=== PATIENT | female | born 1950 | race African-American/Black ===

== ENCOUNTER 2017-05-12 13:30 | Emergency (ER) | payer OTHER ==
[2017-05-12] MEDS ORDERED: ISOVUE-370 76%-LOCM 1 ML ONE (14:12)
[2017-05-12 14:41] LABS: #Basophils 0.1 thou/uL (0.0-0.2); #Eosinphils 0.1 thou/uL (0.0-0.7); #Lymphocytes 2.4 thou/uL (1.20-3.40); #Monocytes 0.4 thou/uL (0.11-0.59); #Neutrophils 4.4 thou/uL (1.40-6.50); %Basophils 0.9 % (0.0-1.0); %Eosinophils 1.2 % (0.0-10.0); %Lymphocytes 32.8 % (21.0-51.0); %Monocytes 4.9 % (0.0-10.0); Hematocrit 36.9 % (36.0-47.0); Mean Platelet Volume 8.7 fL (7.4-10.4); Red Blood Cell (RBC) Count 3.75 mill/uL (4.20-5.40); White Blood Cell (WBC) Count 7.3 thou/uL (4.8-10.8)
[2017-05-12 15:00] LABS: ALT (SGPT) 35 U/L (8-55); AST (SGOT) 22 U/L (5-34); Alkaline Phosphatase 103 U/L (40-150); Anion Gap 17 mmol/L (10-20); BUN (Urea Nitrogen) 16 mg/dL (9.8-20.1); Bilirubin, Total 0.2 mg/dL (0.2-1.2); Calc. Creatinine Clearance 0 mL/min (70-130); Calcium 9.6 mg/dL (7.8-10.44); Carbon Dioxide 27 mmol/L (23-31); Chloride 100 mmol/L (98-107); Estimated GFR-MDRD 74; Globulin 3.8 g/dL (2.4-3.5); Protein, Total 7.8 g/dL (6.0-8.3)
--- NOTE | 2017-05-12 17:15 | CT ---
CT OF THE NECK WITH CONTRAST 05/12/17 COMPARISON: None. HISTORY: Left facial pain and swelling. Sore throat. Submandibular swelling. TECHNIQUE: Multiple contiguous axial images were obtained in a CT of the face/neck with contrast. Sagittal and coronal reformats were performed. FINDINGS: There may be mild stranding in the left parotid gland compared to the right without other focal abno rmality or significant enlargement of the left parotid gland. The submandibular glands are symmetric . The thyroid is unremarkable. No significant soft tissue swelling in the face is seen. No cervical adenopathy is seen. Vascular calcifications are seen in the carotid arteries. 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 No mucosal abnormality is seen in the nasopharynx, oropharynx, hypopharynx, or subglottic regions. T he visualized lung apices are unremarkable. Degenerative changes are seen in the spine. The visualiz ed intracranial structures are unremarkable. IMPRESSION: No focal abscess or fluid collection in the neck. POS: [facility]
== END 2017-05-12 17:19 | disposition home or self-care (01) ==
LOC: ERS 13:30
DX: K11.20 Sialoadenitis, unspecified (principal); I25.10 Atherosclerotic heart disease of native coronary artery without angina pectoris; I10 Essential (primary) hypertension; F41.9 Anxiety disorder, unspecified; F25.0 Schizoaffective disorder, bipolar type; E05.90 Thyrotoxicosis, unspecified without thyrotoxic crisis or storm; Z86.73 Personal history of transient ischemic attack (TIA), and cerebral infarction without residual deficits
CPT/HCPCS: 70491; 80053; 85025

== ENCOUNTER 2017-11-08 14:51 | Emergency (ER) | payer MEDICARE, OTHER ==
[2017-11-08 20:03] LABS: #Eosinphils 0.1 thou/uL (0.0-0.7); #Lymphocytes 3.3 thou/uL (1.20-3.40); #Monocytes 0.5 thou/uL (0.11-0.59); %Basophils 0.4 % (0.0-1.0); %Eosinophils 0.6 % (0.0-10.0); %Lymphocytes 37.1 % (21.0-51.0); %Monocytes 5.3 % (0.0-10.0); %Neutrophils 56.5 % (42.0-75.0); Hemoglobin 12.5 g/dL (12.0-16.0); Mean Corpuscular HGB CONC 33.6 g/dL (32.0-36.0); Mean Corpuscular Hemoglobin 32.6 pg (27.0-31.0); Mean Platelet Volume 7.9 fL (7.4-10.4); Platelet Count 242 thou/uL (130-400); RBC Distribution Width 11.4 % (11.5-14.5); Red Blood Cell (RBC) Count 3.84 mill/uL (4.20-5.40); White Blood Cell (WBC) Count 8.9 thou/uL (4.8-10.8)
[2017-11-08 20:30] LABS: ALT (SGPT) 34 U/L (8-55); AST (SGOT) 24 U/L (5-34); Albumin 4.3 g/dL (3.4-4.8); Alkaline Phosphatase 106 U/L (40-150); Anion Gap 14 mmol/L (10-20); BUN (Urea Nitrogen) 18 mg/dL (9.8-20.1); Bilirubin, Total 0.2 mg/dL (0.2-1.2); Calc. Creatinine Clearance 0 mL/min (70-130); Calcium 9.5 mg/dL (7.8-10.44); Carbon Dioxide 30 mmol/L (23-31); Chloride 97 mmol/L (98-107); Estimated GFR-MDRD 67; Globulin 3.8 g/dL (2.4-3.5); Glucose 213 mg/dL (80-115); Potassium 3.8 mmol/L (3.5-5.1); Protein, Total 8.1 g/dL (6.0-8.3); Sodium 137 mmol/L (136-145)
[2017-11-08 20:36] LABS: CKMB 2.8 ng/mL (0-6.6); Troponin I Less than 0.010 ng/mL (< 0.028)
[2017-11-08 20:39] LABS: Bilirubin Negative (Negative); Blood, Urine Negative (Negative); Clarity CLEAR (Clear); Glucose, Urine (Dipstick) Negative (Negative); Leukocyte Negative (Negative); Nitrite Negative (Negative); Protein, Urine (Dipstick) Negative (Neg-Trace); Specific Gravity, Urine 1.018 (1.002-1.036); Urobilinogen 0.2 mg/dL (0.2-1.0)
--- NOTE | 2017-11-08 21:38 | CT ---
CT BRAIN WITHOUT CONTRAST: Comparison: 08-18-16 History: Low blood pressure. Dizziness. Technique: Multiple contiguous axial images were obtained in a CT of the brain without contrast. FINDINGS: The brain is normal in morphology and attenuation without focal lesions or confluent areas of infarct ion. There is no evidence of hydrocephalus, intracranial hemorrhage or extraaxial fluid collection. The calvarium and overlying soft tissues are unremarkable. The visualized paranasal sinuses and masto id air cells are well aerated. IMPRESSION: No evidence of acute intracranial abnormality. POS: [facility]
--- NOTE | 2017-12-09 15:05 | EKG ---
Test Reason : Blood Pressure : / mmHG Vent. Rate : 063 BPM Atrial Rate : 063 BPM P-R Int : 164 ms QRS Dur : 100 ms QT Int : 444 ms P-R-T Axes : 044 019 084 degrees QTc Int : 454 ms Normal sinus rhythm Nonspecific T wave abnormality Abnormal ECG Confirmed by WILBERTO BARROW ([id number]), copy editor JASSI MULLIGAN ([id number]) on 12/09/2017 3:04:15 PM Referred By: Confirmed By:WILBERTO BARROW
== END 2017-11-08 21:15 | disposition home or self-care (01) ==
LOC: ERS 14:51
DX: I95.9 Hypotension, unspecified (principal); E05.90 Thyrotoxicosis, unspecified without thyrotoxic crisis or storm; I25.10 Atherosclerotic heart disease of native coronary artery without angina pectoris; E11.9 Type 2 diabetes mellitus without complications; I10 Essential (primary) hypertension; F41.9 Anxiety disorder, unspecified; F31.9 Bipolar disorder, unspecified; F20.9 Schizophrenia, unspecified; Z86.73 Personal history of transient ischemic attack (TIA), and cerebral infarction without residual deficits; Z79.899 Other long term (current) drug therapy; Z79.84 Long term (current) use of oral hypoglycemic drugs; Z79.82 Long term (current) use of aspirin
CPT/HCPCS: 36415; 70450; 80053; 81003; 82553; 83880; 84484; 85025; 87086; 93005

== ENCOUNTER 2018-05-06 10:35 | Outpatient (CLI) | payer MEDICARE | END 2018-05-06 10:36 | disposition home or self-care (01) | LOC: BICMAMMO 10:35 | PROVIDERS: ATTEND Nurse Practitioner Family | DX: Z12.31 Encounter for screening mammogram for malignant neoplasm of breast (principal) | CPT/HCPCS: 77063; 77067 ==

== ENCOUNTER 2019-03-04 11:31 | Emergency (ER) | payer MEDICARE, MEDICAID | END 2019-03-04 12:25 | disposition home or self-care (01) | LOC: ERS 11:31 | DX: G51.0 Bell's palsy (principal); I25.10 Atherosclerotic heart disease of native coronary artery without angina pectoris; I10 Essential (primary) hypertension; E05.90 Thyrotoxicosis, unspecified without thyrotoxic crisis or storm; Z86.73 Personal history of transient ischemic attack (TIA), and cerebral infarction without residual deficits; Z79.82 Long term (current) use of aspirin; Z79.899 Other long term (current) drug therapy; Z79.84 Long term (current) use of oral hypoglycemic drugs | CPT/HCPCS: 99283 ==

== ENCOUNTER 2019-07-27 01:49 | Emergency (ER) | payer MEDICARE, OTHER ==
[2019-07-27] MEDS ORDERED: Cyclobenzaprine 10 MG TAB ONE (02:24)
== END 2019-07-27 02:30 | disposition home or self-care (01) ==
LOC: ERS 01:49
DX: M62.838 Other muscle spasm (principal); I10 Essential (primary) hypertension; E05.90 Thyrotoxicosis, unspecified without thyrotoxic crisis or storm; I25.10 Atherosclerotic heart disease of native coronary artery without angina pectoris; E11.9 Type 2 diabetes mellitus without complications; F41.9 Anxiety disorder, unspecified; F31.9 Bipolar disorder, unspecified; F20.9 Schizophrenia, unspecified; Z79.899 Other long term (current) drug therapy; Z79.82 Long term (current) use of aspirin; Z86.73 Personal history of transient ischemic attack (TIA), and cerebral infarction without residual deficits; Z79.84 Long term (current) use of oral hypoglycemic drugs
CPT/HCPCS: 99283

== ENCOUNTER 2020-06-06 11:33 | Outpatient (CLI) | payer MEDICARE, OTHER ==
--- NOTE | 2020-06-06 12:31 | MMO ---
Bilateral MAMMO Bilat Screen [facility]. CLINICAL HISTORY: Patient is 69 years old and is seen for screening. The patient has no family history of breast cancer. The patient has no personal history of cancer. VIEWS: The views performed were: bilateral craniocaudal with tomosynthesis and bilateral mediolateral oblique with tomosynthesis. FILMS COMPARED: The present examination has been compared to prior imaging studies performed at [facility] on 03/21/2015, 03/23/2016, 04/16/2017 and 05/06/2018. This study has been interpreted with the assistance of computer-aided detection. MAMMOGRAM FINDINGS: There are scattered fibroglandular densities. There are stable benign appearing calcifications seen in both breasts. There are also vascular calcifications. There are no suspicious masses, suspicious calcifications, or new areas of architectural distortion. IMPRESSION: THERE IS NO MAMMOGRAPHIC EVIDENCE OF MALIGNANCY. A ROUTINE FOLLOW-UP MAMMOGRAM IN 1 YEAR IS RECOMMENDED. THE RESULTS OF THIS EXAM WERE SENT TO THE PATIENT. ACR BI-RADS Category 2 - Benign finding MAMMOGRAPHY NOTE: 1. A negative mammogram report should not delay a biopsy if a dominant of clinically suspicious mass is present. 2. Approximately 10% to 15% of breast cancers are not detected by mammography. 3. Adenosis and dense breasts may obscure an underlying neoplasm. Reported by: JAYJAY BARRERA MD Electonically Signed: [id number]
== END 2020-06-06 11:34 | disposition home or self-care (01) ==
LOC: BICMAMMO 11:33
PROVIDERS: ATTEND Nurse Practitioner Family
DX: Z12.31 Encounter for screening mammogram for malignant neoplasm of breast (principal)
CPT/HCPCS: 77063; 77067

== ENCOUNTER 2020-12-30 17:23 | Emergency (ER) | payer MEDICARE, MEDICAID ==
[2020-12-30 18:14] LABS: #Basophils 0.1 thou/uL (0.0-0.2); #Eosinphils 0.1 thou/uL (0.0-0.7); #Lymphocytes 3.2 thou/uL (1.20-3.40); #Monocytes 0.7 thou/uL (0.11-0.59); #Neutrophils 4.3 thou/uL (1.40-6.50); %Basophils 0.7 % (0.0-1.0); %Eosinophils 1.1 % (0.0-10.0); %Lymphocytes 38.2 % (21.0-51.0); %Monocytes 8.3 % (0.0-10.0); %Neutrophils 51.7 % (42.0-75.0); Hemoglobin 11.5 g/dL (12.0-16.0); Mean Corpuscular Hemoglobin 33.5 pg (27.0-31.0); Mean Corpuscular Volume 98.5 fL (78.0-98.0); Mean Platelet Volume 8.2 fL (7.4-10.4); Platelet Count 214 thou/uL (130-400); RBC Distribution Width 11.6 % (11.5-14.5); Red Blood Cell (RBC) Count 3.43 mill/uL (4.20-5.40); White Blood Cell (WBC) Count 8.4 thou/uL (4.8-10.8)
[2020-12-30] MEDS ORDERED: Aspirin Chewable 81 MG TAB ONE (18:21)
[2020-12-30 18:46] LABS: AST (SGOT) 17 U/L (5-34); Anion Gap 14 mmol/L (10-20); Bilirubin, Total 0.2 mg/dL (0.2-1.2); Carbon Dioxide 27 mmol/L (23-31); Chloride 100 mmol/L (98-107); Potassium 4.3 mmol/L (3.5-5.1); Sodium 137 mmol/L (136-145)
[2020-12-30 19:25] LABS: ALT (SGPT) 22 U/L (8-55); Albumin 4.1 g/dL (3.4-4.8); Alkaline Phosphatase 93 U/L (40-110); BUN (Urea Nitrogen) 15 mg/dL (9.8-20.1); Calc. Creatinine Clearance 0 mL/min (70-130); Globulin 2.8 g/dL (2.4-3.5); Glucose 76 mg/dL (80-115); Protein, Total 6.9 g/dL (5.8-8.1)
== END 2020-12-30 19:57 | disposition home or self-care (01) ==
LOC: ERS 17:23
DX: L03.313 Cellulitis of chest wall (principal); R60.0 Localized edema; R06.02 Shortness of breath; Z79.899 Other long term (current) drug therapy; Z79.84 Long term (current) use of oral hypoglycemic drugs; Z79.82 Long term (current) use of aspirin; E66.9 Obesity, unspecified; I10 Essential (primary) hypertension; I25.10 Atherosclerotic heart disease of native coronary artery without angina pectoris; E11.9 Type 2 diabetes mellitus without complications; E05.90 Thyrotoxicosis, unspecified without thyrotoxic crisis or storm
CPT/HCPCS: 36415; 71045; 80053; 83880; 84484; 85025; 93005

== ENCOUNTER 2021-01-23 19:49 | Emergency (ER) | payer MEDICARE, MEDICAID ==
[2021-01-23] MEDS ORDERED: Lidocaine 1% w/Epinephrine 1:100K 20 ML VIAL ONE (20:13)
[2021-01-23] MEDS ORDERED: cloNIDine 0.1 MG TAB ONE (21:12)
[2021-01-23 21:34] LABS: #Basophils 0.1 thou/uL (0.0-0.2); #Eosinphils 0.1 thou/uL (0.0-0.7); #Monocytes 0.6 thou/uL (0.11-0.59); #Neutrophils 3.4 thou/uL (1.40-6.50); %Basophils 1.1 % (0.0-1.0); %Eosinophils 1.3 % (0.0-10.0); %Lymphocytes 41.4 % (21.0-51.0); %Monocytes 8.4 % (0.0-10.0); %Neutrophils 47.8 % (42.0-75.0); Hemoglobin 11.8 g/dL (12.0-16.0); Mean Corpuscular HGB CONC 34.1 g/dL (32.0-36.0); Mean Corpuscular Hemoglobin 33.8 pg (27.0-31.0); Mean Corpuscular Volume 98.9 fL (78.0-98.0); Mean Platelet Volume 7.9 fL (7.4-10.4); Platelet Count 211 thou/uL (130-400); Red Blood Cell (RBC) Count 3.51 mill/uL (4.20-5.40); White Blood Cell (WBC) Count 7.1 thou/uL (4.8-10.8)
[2021-01-23 22:03] LABS: AST (SGOT) 28 U/L (5-34); Albumin 4.3 g/dL (3.4-4.8); Alkaline Phosphatase 116 U/L (40-110); Anion Gap 12 mmol/L (10-20); BUN (Urea Nitrogen) 18 mg/dL (9.8-20.1); Bilirubin, Total 0.2 mg/dL (0.2-1.2); Calc. Creatinine Clearance 0 mL/min (70-130); Carbon Dioxide 28 mmol/L (23-31); Chloride 104 mmol/L (98-107); Globulin 3.1 g/dL (2.4-3.5); Glucose 110 mg/dL (80-115); Potassium 4.6 mmol/L (3.5-5.1); Protein, Total 7.4 g/dL (5.8-8.1); Sodium 139 mmol/L (136-145)
[2021-01-23 22:54] LABS: ALT (SGPT) 33 U/L (8-55)
== END 2021-01-23 22:52 | disposition home or self-care (01) ==
LOC: ERS 19:49
DX: L02.213 Cutaneous abscess of chest wall (principal); I10 Essential (primary) hypertension; E11.9 Type 2 diabetes mellitus without complications; Z79.84 Long term (current) use of oral hypoglycemic drugs; Z79.82 Long term (current) use of aspirin; Z79.899 Other long term (current) drug therapy
CPT/HCPCS: 10060; 36415; 80053; 83880; 84484; 85025; 87070; 87205; 93005

== ENCOUNTER 2021-06-06 08:59 | Outpatient (CLI) | payer MEDICARE, MEDICAID | END 2021-06-06 09:00 | disposition home or self-care (01) | LOC: BICMAMMO 08:59 | PROVIDERS: ATTEND Nurse Practitioner Family | DX: Z12.31 Encounter for screening mammogram for malignant neoplasm of breast (principal) | CPT/HCPCS: 77063; 77067 ==

== ENCOUNTER 2021-08-18 12:01 | Emergency (ER) | payer MEDICARE, MEDICAID, OTHER | END 2021-08-18 13:16 | disposition home or self-care (01) | LOC: ERS 12:01 | DX: U07.1 COVID-19 (principal); I10 Essential (primary) hypertension; Z86.73 Personal history of transient ischemic attack (TIA), and cerebral infarction without residual deficits; E11.9 Type 2 diabetes mellitus without complications; E05.90 Thyrotoxicosis, unspecified without thyrotoxic crisis or storm; Z79.84 Long term (current) use of oral hypoglycemic drugs; Z79.82 Long term (current) use of aspirin | CPT/HCPCS: 99283 ==

== ENCOUNTER 2022-06-19 10:32 | Emergency (ER) | payer OTHER ==
[2022-06-19 12:32] LABS: #Eosinphils 0.1 thou/uL (0.0-0.7); #Lymphocytes 2.2 thou/uL (1.20-3.40); #Monocytes 0.4 thou/uL (0.11-0.59); #Neutrophils 3.3 thou/uL (1.40-6.50); %Basophils 0.2 % (0.0-1.0); %Eosinophils 1.4 % (0.0-10.0); %Lymphocytes 37.6 % (21.0-51.0); %Neutrophils 54.9 % (42.0-75.0); Hemoglobin 11.8 g/dL (12.0-16.0); Mean Corpuscular HGB CONC 33.3 g/dL (32.0-36.0); Mean Corpuscular Hemoglobin 32.8 pg (27.0-31.0); Mean Corpuscular Volume 98.7 fl (78.0-98.0); Mean Platelet Volume 8.6 fL (7.4-10.4); Platelet Count 218 thou/uL (130-400); RBC Distribution Width 11.3 % (11.5-14.5); Red Blood Cell (RBC) Count 3.59 mill/uL (4.20-5.40)
[2022-06-19 12:52] LABS: ALT (SGPT) 27 U/L (8-55); AST (SGOT) 23 U/L (5-34); Alkaline Phosphatase 83 U/L (40-110); Anion Gap 15 mmol/L (10-20); BUN (Urea Nitrogen) 25 mg/dL (9.8-20.1); Bilirubin, Total 0.2 mg/dL (0.2-1.2); Calc. Creatinine Clearance 0 mL/min (70-130); Calcium 9.5 mg/dL (7.8-10.44); Carbon Dioxide 25 mmol/L (23-31); Chloride 102 mmol/L (98-107); Estimated GFR 67; Globulin 3.3 g/dL (2.4-3.5); Glucose 152 mg/dL (80-115); Potassium 4.7 mmol/L (3.5-5.1); Protein, Total 7.3 g/dL (5.8-8.1); Sodium 137 mmol/L (136-145)
== END 2022-06-19 15:12 | disposition home or self-care (01) ==
LOC: ERS 10:32
DX: R60.0 Localized edema (principal); I10 Essential (primary) hypertension; E11.9 Type 2 diabetes mellitus without complications; E78.00 Pure hypercholesterolemia, unspecified; E66.9 Obesity, unspecified; Z79.84 Long term (current) use of oral hypoglycemic drugs; Z79.899 Other long term (current) drug therapy
CPT/HCPCS: 36415; 71045; 80053; 83880; 84484; 85025; 93005; 93970

== ENCOUNTER 2022-07-20 10:32 | Outpatient (CLI) | payer OTHER | END 2022-07-20 10:33 | disposition home or self-care (01) | LOC: BICMAMMO 10:32 | PROVIDERS: ATTEND Family Medicine | DX: Z12.31 Encounter for screening mammogram for malignant neoplasm of breast (principal) | CPT/HCPCS: 77063; 77067 ==

== ENCOUNTER 2022-09-24 05:38 | Day surgery (SDC) | payer OTHER, MEDICAID ==
[2022-09-23 08:36] VITALS: BMI 43.0
[2022-09-24] MEDS ORDERED: PROPOFOL 200 MG/20 ML VIAL ONE (08:29)
[2022-09-24] MEDS ORDERED: Lidocaine 1% PF 5 ML VIAL ONE (08:29)
== END 2022-09-24 10:00 | disposition home or self-care (01) ==
LOC: SDC 05:38
PROVIDERS: ATTEND Internal Medicine Gastroenterology
PROC: 0DJ08ZZ Inspection of Upper Intestinal Tract, Via Natural or Artificial Opening Endoscopic (ICD-10-PCS; principal; 2022-09-24)
PROC: 0D757ZZ Dilation of Esophagus, Via Natural or Artificial Opening (ICD-10-PCS; 2022-09-24)
PROC: 0DBK8ZX Excision of Ascending Colon, Via Natural or Artificial Opening Endoscopic, Diagnostic (ICD-10-PCS; 2022-09-24)
PROC: 0DBL8ZX Excision of Transverse Colon, Via Natural or Artificial Opening Endoscopic, Diagnostic (ICD-10-PCS; 2022-09-24)
PROC: 0DBH8ZX Excision of Cecum, Via Natural or Artificial Opening Endoscopic, Diagnostic (ICD-10-PCS; 2022-09-24)
DX: Z12.11 Encounter for screening for malignant neoplasm of colon (principal); D12.0 Benign neoplasm of cecum; D12.2 Benign neoplasm of ascending colon; D12.3 Benign neoplasm of transverse colon; K57.30 Diverticulosis of large intestine without perforation or abscess without bleeding; K21.9 Gastro-esophageal reflux disease without esophagitis; R10.13 Epigastric pain; E78.5 Hyperlipidemia, unspecified; I11.0 Hypertensive heart disease with heart failure; I50.9 Heart failure, unspecified; I25.10 Atherosclerotic heart disease of native coronary artery without angina pectoris; E03.9 Hypothyroidism, unspecified; E11.9 Type 2 diabetes mellitus without complications; M19.90 Unspecified osteoarthritis, unspecified site; Z86.010 Personal history of colon polyps; Z79.82 Long term (current) use of aspirin; Z79.84 Long term (current) use of oral hypoglycemic drugs; Z79.890 Hormone replacement therapy; Z79.899 Other long term (current) drug therapy; Z88.8 Allergy status to other drugs, medicaments and biological substances; Z91.018 Allergy to other foods
CPT/HCPCS: 88305; J2704

== ENCOUNTER 2024-01-11 19:40 | Emergency (ER) | payer OTHER ==
[2024-01-11 20:56] LABS: #Basophils Less than 0.03 10x3/uL (0.0-0.2); %Basophils 0.2 % (0.0-1.0); %Eosinophils 0.9 % (0.0-10.0); %Lymphocytes 32.1 % (21.0-51.0); %Monocytes 7.6 % (0.0-10.0); Hematocrit 34.8 % (36.0-47.0); Hemoglobin 11.3 g/dL (12.0-16.0); Mean Corpuscular HGB CONC 32.5 g/dL (32.0-36.0); Mean Corpuscular Hemoglobin 31.6 pg (27.0-31.0); Mean Corpuscular Volume 97.2 fL (78.0-98.0); Platelet Count 250 10x3/uL (130-400); RBC Distribution Width 12.5 % (11.5-14.5); Red Blood Cell (RBC) Count 3.58 mill/uL (4.20-5.40)
[2024-01-11 21:21] LABS: ALT (SGPT) 17 U/L (8-55); AST (SGOT) 19 U/L (5-34); Albumin 4.1 g/dL (3.4-4.8); Alkaline Phosphatase 70 U/L (40-110); Anion Gap 18 mmol/L (10-20); BUN (Urea Nitrogen) 19 mg/dL (9.8-20.1); Bilirubin, Total 0.3 mg/dL (0.2-1.2); Calc. Creatinine Clearance 0 mL/min (70-130); Calcium 9.9 mg/dL (7.8-10.44); Carbon Dioxide 23 mmol/L (23-31); Chloride 102 mmol/L (98-107); Estimated GFR 47; Glucose 100 mg/dL (83-110); Potassium 4.5 mmol/L (3.5-5.1); Protein, Total 8.1 g/dL (5.8-8.1); Sodium 138 mmol/L (136-145)
[2024-01-11 21:24] LABS: Troponin I Less than 0.010 ng/mL (< 0.028)
== END 2024-01-11 22:15 | disposition home or self-care (01) ==
LOC: ERS 19:40
DX: K11.20 Sialoadenitis, unspecified (principal); I10 Essential (primary) hypertension; E03.9 Hypothyroidism, unspecified; E78.5 Hyperlipidemia, unspecified; E11.9 Type 2 diabetes mellitus without complications; Z79.899 Other long term (current) drug therapy; Z79.82 Long term (current) use of aspirin
CPT/HCPCS: 36415; 70450; 80053; 84484; 85025; 93005

== ENCOUNTER 2024-06-19 13:29 | Outpatient (CLI) | payer OTHER | END 2024-06-19 13:30 | disposition home or self-care (01) | LOC: BICMAMMO 13:29 | PROVIDERS: ATTEND Family Medicine | DX: Z13.820 Encounter for screening for osteoporosis (principal); Z78.0 Asymptomatic menopausal state | CPT/HCPCS: 77080 ==